=== PATIENT | female | born 1970 | race Caucasian/White ===

== ENCOUNTER → 2016-04-03 | Outpatient (REF) | payer BC ==
[~2016-04-03] MED LIST: ADVI200T PO; FIORTAB PO
== END ==
LOC: M LAB REF 12:15
PROVIDERS: ATTEND Physician Assistant Medical
DX: J02.9 Acute pharyngitis, unspecified (principal)

== ENCOUNTER → 2016-07-18 | Outpatient (REF) | payer BC | LOC: M SFHCADAM 14:59 | PROVIDERS: ATTEND Physician Assistant | DX: E55.9 Vitamin D deficiency, unspecified (principal) ==

== ENCOUNTER → 2017-04-01 | Outpatient (REF) | payer BC | LOC: M SFHCWAGY 13:23 | DX: Z12.4 Encounter for screening for malignant neoplasm of cervix (principal); R87.613 High grade squamous intraepithelial lesion on cytologic smear of cervix (HGSIL) | CPT/HCPCS: G0123 ==

== ENCOUNTER → 2017-04-01 | Outpatient (CLI) | payer BC | LOC: M WHC 08:48 | DX: Z12.31 Encounter for screening mammogram for malignant neoplasm of breast (principal); K43.9 Ventral hernia without obstruction or gangrene | CPT/HCPCS: 76705 ==

== ENCOUNTER → 2017-04-28 | Outpatient (REF) | payer BC | LOC: M SFHCWAGY 14:32 | DX: R87.613 High grade squamous intraepithelial lesion on cytologic smear of cervix (HGSIL) (principal) | CPT/HCPCS: 88304 ==

== ENCOUNTER → 2017-09-28 | Outpatient (CLI) | payer BC ==
[2017-09-28 16:43] LABS: BASO % 0.6 % (0.0-1.0); EOS # 0.3 10^3/uL (0.0-0.50); EOS % 4.2 % (0.0-3.0); HEMATOCRIT 39.1 % (36.0-47.0); HEMOGLOBIN 12.1 g/dl (12.0-15.5); IMMATURE GRANULOCYTE % 0.1 % (0-3.0); LYMPH # 2.3 10^3/uL (1.5-4.5); LYMPH % 33.3 % (24.0-44.0); MEAN CORPUSCULAR HEMOGLOBIN 26.3 pg (27.0-33.0); MEAN CORPUSCULAR HGB CONC 30.9 g/dl (32.0-36.5); MONO # 0.5 10^3/uL (0.0-0.8); MONO % 7.6 % (0.0-5.0); NEUTROPHILS # 3.7 10^3/uL (1.8-7.7); NEUTROPHILS % 54.2 % (36.0-66.0); PLATELET COUNT, AUTOMATED 308 10^3/uL (150-450); RED CELL DISTRIBUTION WIDTH 13.6 % (11.5-14.5); WHITE BLOOD COUNT 6.9 10^3/uL (4.0-10.0)
== END ==
LOC: M ADAMS 10:00
DX: L03.011 Cellulitis of right finger (principal)
CPT/HCPCS: 85025

== ENCOUNTER → 2018-01-19 | Outpatient (REF) | payer BC ==
[2018-01-19 20:24] LABS: COMPLEMENT C3 105 MG/DL (90-180)
[2018-01-19 20:24] LABS: C REACTIVE PROTEIN QUANTITATIV < 0.30 MG/DL (0.00-0.30); COMPLEMENT C4 21 MG/DL (10-40); RHEUMATOID FACTOR QUANT < 10.0 IU/ML (<15.0)
[2018-01-19 20:57] LABS: ERYTHROCYTE SEDIMENTATION RATE 6 mm/hr (0-20)
[2018-01-20 22:22] LABS: CRYOGLOBULINS NEGATIVE (NEGATIVE)
[2018-01-22 00:08] LABS: ANTINUCLEAR ANTIBODIES DIRECT Negative (Negative); COMPLEMENT TOTAL (CH50) > 60 U/mL (>41)
== END ==
LOC: M LABDRWAD 19:12
DX: D89.89 Other specified disorders involving the immune mechanism, not elsewhere classified (principal); I77.6 Arteritis, unspecified

== ENCOUNTER → 2018-05-01 | Outpatient (REF) | payer BC ==
[2018-05-01 13:48] LABS: HEMATOCRIT 38.2 % (36.0-47.0); HEMOGLOBIN 11.7 g/dl (12.0-15.5); MEAN CORPUSCULAR HEMOGLOBIN 24.7 pg (27.0-33.0); MEAN CORPUSCULAR HGB CONC 30.6 g/dl (32.0-36.5); MEAN CORPUSCULAR VOLUME 80.8 fl (80.0-96.0); PLATELET COUNT, AUTOMATED 322 10^3/uL (150-450); RED BLOOD COUNT 4.73 10^6/uL (4.00-5.40); WHITE BLOOD COUNT 4.7 10^3/uL (4.0-10.0)
[2018-05-01 21:01] LABS: BLOOD UREA NITROGEN 12 MG/DL (7-18); CALCIUM LEVEL 8.2 MG/DL (8.5-10.1); CARBON DIOXIDE LEVEL 28 MEQ/L (21-32); CHLORIDE LEVEL 109 MEQ/L (98-107); FERRITIN 4 NG/ML (8-252); FOLATE 7.5 NG/ML; GLOMERULAR FILTRATION RATE > 60.0 (>58); GLUCOSE, FASTING 81 MG/DL (70-100); IRON (FE) 24 UG/DL (50-170); MAGNESIUM LEVEL 1.9 MG/DL (1.8-2.4); PERCENT SATURATION 5.2 % (13.2-45.0); POTASSIUM SERUM 4.5 MEQ/L (3.5-5.1); SODIUM LEVEL 140 MEQ/L (136-145); TOTAL IRON BINDING CAPACITY 466 UG/DL (250-450); VITAMIN B12 LEVEL 1348 PG/ML
== END ==
LOC: M SFHCADAM 07:43
PROVIDERS: ATTEND Physician Assistant
DX: D64.9 Anemia, unspecified (principal); R10.9 Unspecified abdominal pain

== ENCOUNTER → 2018-07-02 | Outpatient (CLI) | payer BC ==
[2018-07-02 15:14] LABS: BASO # 0.1 10^3/uL (0.0-0.2); BASO % 0.8 % (0.0-1.0); EOS # 0.1 10^3/uL (0.0-0.50); EOS % 2.1 % (0.0-3.0); HEMATOCRIT 37.9 % (36.0-47.0); HEMOGLOBIN 11.8 g/dl (12.0-15.5); LYMPH # 2.1 10^3/uL (1.5-4.5); LYMPH % 35.1 % (24.0-44.0); MEAN CORPUSCULAR HEMOGLOBIN 25.1 pg (27.0-33.0); MEAN CORPUSCULAR HGB CONC 31.1 g/dl (32.0-36.5); MEAN CORPUSCULAR VOLUME 80.6 fl (80.0-96.0); MONO # 0.5 10^3/uL (0.0-0.8); MONO % 8.1 % (0.0-5.0); NEUTROPHILS # 3.3 10^3/uL (1.8-7.7); NEUTROPHILS % 53.7 % (36.0-66.0); PLATELET COUNT, AUTOMATED 282 10^3/uL (150-450); WHITE BLOOD COUNT 6.1 10^3/uL (4.0-10.0)
[2018-07-02 15:46] LABS: ALT/SGPT 21 U/L (12-78); AMYLASE 61 U/L (25-115); BILIRUBIN,TOTAL 0.5 MG/DL (0.2-1.0); BLOOD UREA NITROGEN 9 MG/DL (7-18); CARBON DIOXIDE LEVEL 27 MEQ/L (21-32); CHLORIDE LEVEL 106 MEQ/L (98-107); CREATININE FOR GFR 0.83 MG/DL (0.55-1.30); GLOMERULAR FILTRATION RATE > 60.0 (>51); GLUCOSE, FASTING 84 MG/DL (70-100); LIPASE 219 U/L (73-393); POTASSIUM SERUM 3.9 MEQ/L (3.5-5.1); SODIUM LEVEL 139 MEQ/L (136-145); TOTAL PROTEIN 7.1 GM/DL (6.4-8.2)
== END ==
LOC: M LAB 14:50
PROVIDERS: ATTEND Physician Assistant
DX: R10.10 Upper abdominal pain, unspecified (principal)

== ENCOUNTER → 2018-08-19 | Outpatient (CLI) | payer BC, OTHER, SELFPAY ==
--- NOTE | 2018-08-19 14:25 | REP ---
PELVIC ULTRASOUND: Real-time sonographic evaluation of the pelvis performed utilizing transabdominal and endovaginal technique. The bladder measures 4.8 x 1.8 x 4.9 cm. The uterus measures 9.0 x 5.4 x 6.8 cm. Endometrial thickness is 18 mL. 2 mm cystic structure is seen in the endometrium. Right ovary measures 2.1 x 1.8 x 2.7 cm and left ovary 2.3 x 1.6 x 2.1 cm. There is no ovarian torsion. RI right ovary 0.52 and left ovary 0.57. Dominant follicle in the right ovary measures 1.6 x 0.8 x 1.5 cm. There is no other evidence of adnexal mass or free fluid. IMPRESSION: Prominent endometrial thickness at 18 mm. 2 mm cystic structure in the endometrium. Dominant follicle right ovary 1.6 cm in maximum diameter. No ovarian torsion. No other evidence of adnexal mass or free fluid. Electronically Signed by Quentin Menjivar MD 08/19/2018 04:34 P
== END ==
LOC: M RAD 11:52
PROVIDERS: ATTEND Obstetrics & Gynecology Gynecology
DX: N83.202 Unspecified ovarian cyst, left side (principal)

== ENCOUNTER → 2019-01-23 | Outpatient (CLI) | payer OTHER ==
--- NOTE | 2019-01-24 09:32 | REP ---
CHEST PA AND LATERAL: 01/23/2019. CLINICAL HISTORY: Fever. Cough. COMPARISON: 10/20/2004. FINDINGS: Two views show the lung lawler well inflated. There is an extensive dextrorotatory thoracolumbar scoliosis again seen and progressive compared to the 2004 study. There is no pleural effusion, acute infiltrate, atelectasis, or mass. Heart is not enlarged. There is no vascular redistribution or pulmonary edema. The aorta and airway are intact. There is no widening of the mediastinum. Bony thorax shows the dextrorotation but no compression fracture or destructive lesion. Visualized ribs intact. IMPRESSION: 1. No acute cardiopulmonary change. 2. Thoracolumbar dextrorotatory scoliosis. Electronically Signed by Damion Navarro MD 01/24/2019 10:19 A
== END ==
LOC: M ADAMS 11:04
PROVIDERS: ATTEND Physician Assistant
DX: R05 Cough (principal); R50.9 Fever, unspecified

== ENCOUNTER → 2019-07-27 | Outpatient (CLI) | payer OTHER ==
--- NOTE | 2019-07-28 05:31 | REP ---
Clinical: Thyroid nodule. Technique: Real time woodall scale and color evaluation using linear high frequency transducer. Findings: Right thyroid lobe measures 4.4 x 1.7 x 1.4 cm and includes 5 x 3 x 5 mm hypoechoic nonspecific nodule in the upper pole and 3 x 2 x 2 mm anechoic nonspecific nodule in the lower pole. Left thyroid lobe measures 3.6 x 1.3 x 1.2 cm and includes 5 x 2 x 4 mm hypoechoic nodule with small echogenic focus in the upper pole and 4 x 2 x 3 mm hypoechoic nodule in the lower pole. Isthmus measures 2 mm in width. Impression: Few scattered nonspecific, indeterminate nodules. Electronically Signed by Tenzin Chen MD 07/28/2019 05:22 A
== END ==
LOC: M RAD 15:13
PROVIDERS: ATTEND Physician Assistant
DX: E04.1 Nontoxic single thyroid nodule (principal)

== ENCOUNTER → 2020-02-29 | Outpatient (CLI) | payer OTHER ==
[2020-02-29 17:21] LABS: CHOLESTEROL RISK RATIO 2.661 (<5)
[2020-03-02 19:09] LABS: TESTOSTERONE FREE (DIRECT) 0.7 pg/mL (0.0-4.2)
== END ==
LOC: M LAB 16:22
PROVIDERS: ATTEND Nurse Practitioner Family
DX: R53.83 Other fatigue (principal)

== ENCOUNTER → 2020-04-07 | Outpatient (REF) | payer OTHER ==
[2020-04-07 17:21] LABS: BASO # 0.1 10^3/uL (0.0-0.2); BASO % 0.7 % (0.0-1.0); EOS # 0.2 10^3/uL (0.0-0.5); EOS % 2.9 % (0.0-3.0); HEMATOCRIT 47.5 % (36.0-47.0); HEMOGLOBIN 15.3 g/dl (12.0-15.5); LYMPH # 2.1 10^3/uL (1.5-5.0); MEAN CORPUSCULAR HEMOGLOBIN 29.5 pg (27.0-33.0); MEAN CORPUSCULAR HGB CONC 32.2 g/dl (32.0-36.5); MEAN CORPUSCULAR VOLUME 91.5 fl (80.0-96.0); MONO # 0.5 10^3/uL (0.0-0.8); MONO % 7.3 % (2.0-8.0); NEUTROPHILS % 57.8 % (36.0-66.0); PLATELET COUNT, AUTOMATED 305 10^3/uL (150-450); RED BLOOD COUNT 5.19 10^6/uL (4.00-5.40); WHITE BLOOD COUNT 6.9 10^3/uL (4.0-10.0)
[2020-04-07 17:51] LABS: ALBUMIN 3.9 GM/DL (3.2-5.2); ALT/SGPT 42 U/L (12-78); AMYLASE 50 U/L (25-115); BILIRUBIN,TOTAL 0.5 MG/DL (0.2-1.0); BLOOD UREA NITROGEN 9 MG/DL (7-18); CALCIUM LEVEL 9.5 MG/DL (8.5-10.1); CARBON DIOXIDE LEVEL 28 MEQ/L (21-32); CHLORIDE LEVEL 104 MEQ/L (98-107); CREATININE FOR GFR 0.92 MG/DL (0.55-1.30); GLOMERULAR FILTRATION RATE > 60.0 (>51); GLUCOSE, FASTING 79 MG/DL (70-100); LIPASE 143 U/L (73-393); POTASSIUM SERUM 4.4 MEQ/L (3.5-5.1); SODIUM LEVEL 140 MEQ/L (136-145); TOTAL PROTEIN 7.5 GM/DL (6.4-8.2)
== END ==
LOC: M SFHCADAM 12:59
PROVIDERS: ATTEND Physician Assistant
DX: R19.7 Diarrhea, unspecified (principal); R10.13 Epigastric pain; R53.83 Other fatigue

== ENCOUNTER → 2020-04-13 | Outpatient (CLI) | payer OTHER ==
[2020-04-13 17:42] LABS: CHOLESTEROL RISK RATIO 2.486 (<5)
[2020-04-15 20:07] LABS: TESTOSTERONE FREE (DIRECT) 0.6 pg/mL (0.0-4.2)
== END ==
LOC: M LAB 16:34
PROVIDERS: ATTEND Nurse Practitioner Family
DX: R53.83 Other fatigue (principal)

== ENCOUNTER → 2020-05-03 | Outpatient (CLI) | payer OTHER ==
--- NOTE | 2020-05-03 10:06 | REP ---
INDICATION: DIARRHEA , EPIGASTRIC PAIN FATIGUE COMPARISON: 04/01/2017 TECHNIQUE: Real time woodall scale ultrasound examination using curved array transducer. FINDINGS: Liver and pancreas are normal in contour, size, and echogenicity without focal hepatic or pancreatic lesions identified. The gallbladder is normal and without gallstones, wall thickening, or pericholecystic fluid. No biliary ductal dilatation is appreciated and the common bile duct measures 4.0 mm diameter. Right kidney is normal in reniform shape without hydronephrosis and measures 11.3 x 5.0 x 3.9 cm. No ascites in the visualized right upper quadrant. IMPRESSION: 1. Normal limited right upper quadrant ultrasound 2. Of incidental note, the technologist reports a mildly static prominent loop of bowel in the midline. Upper GI examination or CT should be considered if the patient remains symptomatic. <Electronically signed by Tenzin Chen > 05/03/20 1009
== END ==
LOC: M RAD 09:10
PROVIDERS: ATTEND Physician Assistant
DX: R19.7 Diarrhea, unspecified (principal); R10.13 Epigastric pain; R53.83 Other fatigue; E04.1 Nontoxic single thyroid nodule

== ENCOUNTER → 2020-07-05 | Outpatient (CLI) | payer OTHER ==
[~2020-07-05] MED LIST changes: +GASTROGRAFIN SOLUTION 30ML (Q9963) As Ordered ONE; +GLUCAGON INJ 1MG VIAL As Ordered ONE; +ISOVUE-370 76% 100ML VIAL As Ordered ONE; +VoLumen 0.1% SUSPENSION 450ML BOTTLE As Ordered ONE
--- NOTE | 2020-07-05 10:40 | REP ---
INDICATION: ABN FINDING ON IMAGING, MIXED IBS COMPARISON: None. TECHNIQUE: Axial contrast-enhanced images from the lung bases to the pubic symphysis with images obtained in arterial and portal venous phases of enhancement. Low-dose oral contrast material was administered prior to imaging. Coronal and sagittal reformations were obtained. This CT examination was performed using the following dose reduction techniques: Automated exposure control, adjustment of mA and/or kv according to the patient's size, and use of iterative reconstruction technique. FINDINGS: There is moderate fecal stasis and presumed constipation throughout the colon to the rectosigmoid. The small bowel is grossly unremarkable in appearance. Normal terminal ileum and appendix are identified in the right lower quadrant. Scattered sigmoid diverticula noted without acute diverticulitis. Liver, spleen, pancreas, bilateral adrenal glands and bilateral kidneys are normal. Pelvis demonstrates normal bladder and evidence for prior hysterectomy. No ascites. No adenopathy. No inflammatory stranding. No free air. Abdominal aorta and vasculature appear normal. Significant scoliosis is appreciated. Lung bases are clear. IMPRESSION: No acute abdominopelvic pathology appreciated. Moderate to significant fecal stasis and presumed constipation. Remainder of the enteric system is normal. <Electronically signed by Tenzin Chen > 07/05/20 1037
== END ==
LOC: M RAD 08:15
PROVIDERS: ATTEND Internal Medicine Gastroenterology
DX: R93.3 Abnormal findings on diagnostic imaging of other parts of digestive tract (principal); K58.2 Mixed irritable bowel syndrome; K59.00 Constipation, unspecified
CPT/HCPCS: 74177; J1610; Q9967

== ENCOUNTER 2021-05-12 16:49 | Emergency (ER) | payer OTHER ==
[~2021-05-12] VITALS: Ht 162.6 cm; Wt 64.0 kg
[~2021-05-12 16:49] MED LIST changes: -GASTROGRAFIN SOLUTION 30ML (Q9963) As Ordered ONE; -GLUCAGON INJ 1MG VIAL As Ordered ONE; -ISOVUE-370 76% 100ML VIAL As Ordered ONE; -VoLumen 0.1% SUSPENSION 450ML BOTTLE As Ordered ONE
[2021-05-12] MEDS ORDERED: OMEP40CA5 PO (16:54)
[2021-05-12 19:20] VITALS: BP 117/64
== END 2021-05-12 19:22 | disposition home or self-care (01) ==
LOC: M ED 16:49
DX: I83.813 Varicose veins of bilateral lower extremities with pain (principal); Z86.16 Personal history of COVID-19

== ENCOUNTER → 2021-06-26 | Outpatient (CLI) | payer OTHER ==
[~2021-06-26] MED LIST changes: +OMEP40CA5 PO
== END ==
LOC: M ADAMS 15:46
PROVIDERS: ATTEND Obstetrics & Gynecology
DX: R35.0 Frequency of micturition (principal)

== ENCOUNTER → 2021-09-07 | Outpatient (CLI) | payer OTHER | LOC: M RAD 11:26 | PROVIDERS: ATTEND Physician Assistant | DX: I83.811 Varicose veins of right lower extremity with pain (principal) ==

== ENCOUNTER → 2021-09-13 | Outpatient (CLI) | payer OTHER ==
[~2021-09-13] MED LIST changes: +B-12100010 PO; +CITA10TA7; +PROB250C PO; +VITA500C24 PO; +VITMTA PO
== END ==
LOC: M LABSMTC 10:47
PROVIDERS: ATTEND Anesthesiology
DX: Z01.812 Encounter for preprocedural laboratory examination (principal); Z11.52 Encounter for screening for COVID-19

== ENCOUNTER 2021-09-18 10:18 | Day surgery (SDC) | payer OTHER ==
[~2021-09-18] VITALS: Ht 162.6 cm; Wt 62.1 kg
[~2021-09-18 10:18] MED LIST changes: +NS 1,000 ML IV ONE
[2021-09-18] MEDS ORDERED: propofoL 500 MG/50 ML VIAL As Ordered ONE (10:27)
[2021-09-18] MEDS ORDERED: fentaNYL 100 MCG/2 ML INJECTION As Ordered ONE (10:27)
[2021-09-18] MEDS ORDERED: LIDOCAINE 2% 100MG/5ML SDV (FOR ANES.) As Ordered ONE (10:27)
[2021-09-18 12:21] VITALS: BP 109/63
== END 2021-09-18 12:24 | disposition home or self-care (01) ==
LOC: M OPP 10:18
PROVIDERS: ATTEND Internal Medicine Gastroenterology
DX: R19.4 Change in bowel habit (principal); K20.0 Eosinophilic esophagitis; K58.9 Irritable bowel syndrome, unspecified; K63.5 Polyp of colon; D13.0 Benign neoplasm of esophagus; D13.1 Benign neoplasm of stomach; D13.2 Benign neoplasm of duodenum; K64.8 Other hemorrhoids; R12 Heartburn; F41.9 Anxiety disorder, unspecified; Z88.5 Allergy status to narcotic agent; Z91.040 Latex allergy status; Z79.899 Other long term (current) drug therapy
CPT/HCPCS: 43239; 45380; 45385; 88305; J3010

== ENCOUNTER → 2021-11-15 | Outpatient (REF) | payer OTHER ==
[~2021-11-15] MED LIST changes: -NS 1,000 ML IV ONE
== END ==
LOC: M SFHCDERM 14:25
PROVIDERS: ATTEND Physician Assistant
DX: L82.0 Inflamed seborrheic keratosis (principal)

== ENCOUNTER → 2022-07-25 | Outpatient (CLI) | payer OTHER | LOC: M ADAMS 14:59 | PROVIDERS: ATTEND Physician Assistant | DX: J20.9 Acute bronchitis, unspecified (principal) ==

== ENCOUNTER → 2022-09-25 | Outpatient (REF) | payer OTHER | LOC: M SFHCDERM 14:12 | PROVIDERS: ATTEND Physician Assistant | DX: L82.1 Other seborrheic keratosis (principal) ==

== ENCOUNTER → 2023-07-09 | Outpatient (CLI) | payer OTHER | LOC: M ADAMS 14:33 | PROVIDERS: ATTEND Physician Assistant | DX: M25.552 Pain in left hip (principal); G89.29 Other chronic pain ==

== ENCOUNTER → 2023-09-05 | Outpatient (CLI) | payer OTHER | LOC: M RAD 13:17 | PROVIDERS: ATTEND Physician Assistant | DX: E04.1 Nontoxic single thyroid nodule (principal) ==

== ENCOUNTER → 2023-09-09 | Outpatient (REF) | payer OTHER ==
[2023-09-09 13:23] LABS: HEMATOCRIT 44.6 % (36.0-47.0); HEMOGLOBIN 14.6 g/dl (12.0-15.5); MEAN CORPUSCULAR HEMOGLOBIN 30.4 pg (27.0-33.0); MEAN CORPUSCULAR HGB CONC 32.7 g/dl (32.0-36.5); MEAN CORPUSCULAR VOLUME 92.7 fl (80.0-96.0); PLATELET COUNT, AUTOMATED 248 10^3/uL (150-450); RED BLOOD COUNT 4.81 10^6/uL (4.00-5.40); WHITE BLOOD COUNT 4.9 10^3/uL (4.0-10.0)
[2023-09-09 13:26] LABS: ALBUMIN 3.9 G/DL (3.2-5.2); ALKALINE PHOSPHATASE 48 U/L (46-116); ALT/SGPT 22 U/L (7.0-40); AST/SGOT 14 U/L (<34); BILIRUBIN,TOTAL 0.6 MG/DL (0.3-1.2); BLOOD UREA NITROGEN 12 MG/DL (9-23); CALCIUM LEVEL 9.1 MG/DL (8.5-10.1); CARBON DIOXIDE LEVEL 27 MMOL/L (20-31); CHLORIDE LEVEL 107 MMOL/L (98-107); CHOLESTEROL LEVEL 174 MG/DL (<200); CHOLESTEROL RISK RATIO 2.74 (<5); GLOMERULAR FILTRATION RATE > 60.0 (>51); GLUCOSE, FASTING 83 MG/DL (60-100); HDL CHOLESTEROL 63.3 MG/DL (>40); IRON (FE) 85 UG/DL (50-170); LDL CHOLESTEROL 94.9 MG/DL (<100); NON-HDL-C 110.7 MG/DL; PERCENT SATURATION 25.1 % (13.2-45.0); POTASSIUM SERUM 4.5 MMOL/L (3.5-5.1); SODIUM LEVEL 141 MMOL/L (136-145); THYROID STIMULATING HORMONE 2.105 uIU/ML (0.55-4.78); TOTAL IRON BINDING CAPACITY 338 UG/DL (250-425); TOTAL PROTEIN 6.6 G/DL (5.7-8.2); TRIGLYCERIDES LEVEL 79 MG/DL (<150)
[2023-09-09 13:28] LABS: FOLATE > 24.0 NG/ML (>5.4); TOTAL 25(OH) VITAMIN D 79.8 NG/ML (20.0-100.0); VITAMIN B12 LEVEL 1983 PG/ML (211-911)
== END ==
LOC: M SFHCADAM 10:06
PROVIDERS: ATTEND Physician Assistant
DX: Z00.00 Encounter for general adult medical examination without abnormal findings (principal); M41.9 Scoliosis, unspecified; M51.36 Other intervertebral disc degeneration, lumbar region; G35 Multiple sclerosis; M81.0 Age-related osteoporosis without current pathological fracture; K25.7 Chronic gastric ulcer without hemorrhage or perforation; J32.9 Chronic sinusitis, unspecified; E04.1 Nontoxic single thyroid nodule

== ENCOUNTER → 2023-11-22 | Outpatient (REF) | payer OTHER | LOC: M LAB REF 21:36 | PROVIDERS: ATTEND Student in an Organized Health Care Education/Training Program | DX: J06.9 Acute upper respiratory infection, unspecified (principal) ==

== ENCOUNTER → 2024-09-17 | Outpatient (CLI) | payer OTHER ==
[2024-09-17 10:24] LABS: BASO # 0.1 10^3/uL (0.0-0.2); BASO % 0.8 % (0.0-1.0); EOS # 0.4 10^3/uL (0.0-0.5); EOS % 6.2 % (0.0-3.0); LYMPH # 2.4 10^3/uL (1.5-5.0); LYMPH % 40.3 % (24.0-44.0); MONO # 0.4 10^3/uL (0.0-0.8); MONO % 7.0 % (2.0-8.0); NEUTROPHILS # 2.7 10^3/uL (1.5-8.5); NEUTROPHILS % 45.5 % (36.0-66.0); PLATELET COUNT, AUTOMATED 269 10^3/uL (150-450)
[2024-09-17 11:01] LABS: FREE T4 1.35 NG/DL (0.89-1.76)
[2024-09-17 11:02] LABS: LUTEINIZING HORMONE 45.6 mIU/ML
[2024-09-17 11:03] LABS: ESTRADIOL 51.8 PG/ML; PROGESTERONE < 0.21 NG/ML
[2024-09-23 00:48] LABS: TESTOSTERONE FREE (DIRECT) 0.4 pg/mL (0.1-6.4); TESTOSTERONE TOTAL FOR T&D 6.0 ng/dL (2-45)
== END ==
LOC: M LAB 09:58
PROVIDERS: ATTEND Family Medicine
DX: R89.1 Abnormal level of hormones in specimens from other organs, systems and tissues (principal); N95.1 Menopausal and female climacteric states; E34.9 Endocrine disorder, unspecified; E07.89 Other specified disorders of thyroid; R53.83 Other fatigue

== ENCOUNTER → 2024-10-30 | Outpatient (CLI) | payer OTHER ==
[2024-10-30 11:08] LABS: BASO # 0.1 10^3/uL (0.0-0.2); BASO % 1.0 % (0.0-1.0); EOS # 0.3 10^3/uL (0.0-0.5); EOS % 5.6 % (0.0-3.0); LYMPH # 2.1 10^3/uL (1.5-5.0); LYMPH % 35.0 % (24.0-44.0); MONO # 0.5 10^3/uL (0.0-0.8); MONO % 7.4 % (2.0-8.0); NEUTROPHILS # 3.1 10^3/uL (1.5-8.5); NEUTROPHILS % 50.8 % (36.0-66.0); PLATELET COUNT, AUTOMATED 305 10^3/uL (150-450)
[2024-10-30 11:38] LABS: ESTRADIOL 25.0 PG/ML
[2024-10-30 11:39] LABS: PROGESTERONE < 0.21 NG/ML
== END ==
LOC: M LAB 09:27
PROVIDERS: ATTEND Family Medicine
DX: R89.1 Abnormal level of hormones in specimens from other organs, systems and tissues (principal); N95.1 Menopausal and female climacteric states; E34.9 Endocrine disorder, unspecified; E07.89 Other specified disorders of thyroid

== ENCOUNTER → 2025-01-19 | Outpatient (CLI) | payer OTHER ==
[2025-01-19 13:48] LABS: BASO # 0.1 10^3/uL (0.0-0.2); BASO % 0.8 % (0.0-1.0); EOS # 0.2 10^3/uL (0.0-0.5); EOS % 3.7 % (0.0-3.0); LYMPH # 2.6 10^3/uL (1.5-5.0); LYMPH % 42.3 % (24.0-44.0); MONO # 0.5 10^3/uL (0.0-0.8); MONO % 8.1 % (2.0-8.0); NEUTROPHILS # 2.8 10^3/uL (1.5-8.5); NEUTROPHILS % 44.9 % (36.0-66.0); PLATELET COUNT, AUTOMATED 311 10^3/uL (150-450)
[2025-01-19 14:16] LABS: PROGESTERONE < 0.21 NG/ML
[2025-01-19 14:19] LABS: ESTRADIOL 24.7 PG/ML
[2025-01-26 22:29] LABS: TESTOSTERONE FREE (DIRECT) 11.2 pg/mL (0.1-6.4); TESTOSTERONE TOTAL FOR T&D 135.0 ng/dL (2-45)
== END ==
LOC: M LABDRWAD 07:35
PROVIDERS: ATTEND Family Medicine
DX: R89.1 Abnormal level of hormones in specimens from other organs, systems and tissues (principal); N95.1 Menopausal and female climacteric states; E34.9 Endocrine disorder, unspecified; E07.89 Other specified disorders of thyroid